=== PATIENT | male | born 1990 | race Asian ===

== ENCOUNTER 2018-01-13 03:02 | Emergency (ER) | payer OTHER ==
[~2018-01-13] VITALS: Ht 193 cm; Wt 102.4 kg
[2018-01-13 03:07] VITALS: TEMP 36.7; Ht 193 cm; Wt 102.4 kg
[2018-01-13] MEDS ORDERED: GI COCKTAIL PO STA (03:19)
[2018-01-13] MEDS ORDERED: SODIUM CHLORIDE 0.9% 1000ML 1,000 ML IV STA (03:19)
--- NOTE | 2018-01-13 03:24 | EMERGENCY ROOM VISIT NOTE ---
History Report prepared by Saloni: Thomas Sethi Under the Supervision of: Dr. Brooks Montague M.D. First contact with patient: 03:13 Chief Complaint: ABDOMINAL PAIN Stated Complaint: ACUTE STOMACH ACHE History of Present Illness The patient is a 27 year old male who presents to the Emergency Room with complaints of an intermittent lower abdominal pain beginning two hours ago. He rates his symptoms an 8/10 in peak severity. The patient states he had a fever yesterday and took acetaminophen. He reports his fever resolved, and now he has his stomach pain. The patient denies nausea, vomiting, diarrhea, leg swelling, and a past medical history. He notes he has been in the [place] for a year now and is a grad student at [employer]. The patient states he is able to drive, but he took an Uber here because he cannot drive when his pain increases. He reports he researched his symptoms and believes he may have acute gastroenteritis. Source of History: patient Onset: two hours ago Position: abdomen Symptom Intensity: 8/10 Timing: intermittent Associated Symptoms: + fevers (resolved), No nausea, No vomiting, No diarrhea Note: He denies leg swelling Review of Systems See HPI for pertinent positives & negatives. A total of 10 systems reviewed and were otherwise negative. Past Medical & Surgical Medical Problems: (1) No Known Active Medical Problems Family History Patient reports no known family medical history. Social History Smoking Status: Never Smoker Occupation Status: [employer] Current/Historical Medications Scheduled Dicyclomine Hcl (Bentyl), 1 CAP PO TID Allergies Coded Allergies: No Known Allergies (Unverified , 01/13/18) Physical Exam Vital Signs Date Time Temp Pulse Resp B/P (MAP) Pulse Ox O2 Delivery O2 Flow Rate FiO2 01/13/18 05:53 59 18 115/66 100 Room Air 01/13/18 05:00 72 18 139/89 100 Room Air 01/13/18 03:07 36.7 67 18 147/78 97 Room Air Physical Exam GENERAL: Patient is well appearing and in minimal distress. EYES: No scleral icterus, unremarkable pupils. ENT: Mucous membranes moist, no nasal congestion. NECK: No masses appreciated, no meningismus, trachea is midline. RESPIRATORY: No dyspnea. Clear to auscultation and equal bilaterally. No wheeze , no rhonchi. CARDIOVASCULAR: Regular rate and rhythm. No murmurs, rubs, gallops appreciated. GASTROINTESTINAL: Abdomen soft, vague periumbilical tenderness, no peritonitis. Bowel sounds positive. No masses appreciated. BACK: No midline tenderness, no CVA tenderness EXTREMITIES: Normal motion all extremities, no cyanosis, no edema. NEUROLOGIC: Alert and oriented, no acute motor or sensory deficits, no focal weakness, cranial nerves grossly intact. SKIN: No rash, no jaundice, no diaphoresis. Medical Decision & Procedures ER Provider Diagnostic Interpretation: Stat Rad Radiology results and stated below per my review and radiologist interpretation: CT ABDOMEN & PELVIS With Contrast: Mucosal thickening involving several small bowel loops in the right abdomen. Fluid-filled loops of small bowel in left abdomen. No evidence for high-grade bowel obstruction the primary consideration is inflammatory or infectious enteritis. Normal caliber appendix noted in the right pelvis. No free fluid or pneumoperitoneum. The liver, decompressed gallbladder, pancreas, spleen, adrenal glands and kidneys are unremarkable. The bladder is decompressed without significant abnormality. Radiologist: Scott Devlin MD Laboratory Results 01/13/18 03:50 Red Blood Count 5.35, Mean Corpuscular Volume 84.7, Mean Corpuscular Hemoglobin 29.5, Mean Corpuscular Hemoglobin Concent 34.9, Mean Platelet Volume 11.9, Neutrophils (%) (Auto) 81.5, Lymphocytes (%) (Auto) 12.9, Monocytes (%) (Auto) 4.9, Eosinophils (%) (Auto) 0.4, Basophils (%) (Auto) 0.2, Neutrophils # (Auto) 10.88, Lymphocytes # (Auto) 1.73, Monocytes # (Auto) 0.66, Eosinophils # (Auto) 0.05, Basophils # (Auto) 0.03 01/13/18 03:50 Test 01/13/18 03:45 01/13/18 03:50 Urine Color DK YELLOW Urine Appearance CLEAR (CLEAR) Urine pH 5.5 (4.5-7.5) Urine Specific [place] 1.031 (1.000-1.030) Urine Protein TRACE (NEG) Urine Glucose (UA) NEG (NEG) Urine Ketones 1+ (NEG) Urine Occult Blood TRACE (NEG) Urine Nitrite NEG (NEG) Urine Bilirubin NEG (NEG) Urine Urobilinogen NEG (NEG) Urine Leukocyte Esterase NEG (NEG) Urine WBC (Auto) 1-5 /hpf (0-5) Urine RBC (Auto) 0-4 /hpf (0-4) Urine Hyaline Casts (Auto) 1-5 /lpf (0-5) Urine Epithelial Cells (Auto) 0-5 /lpf (0-5) Urine Bacteria (Auto) NEG (NEG) White Blood Count 13.37 K/uL (4.8-10.8) Red Blood Count 5.35 M/uL (4.7-6.1) Hemoglobin 15.8 g/dL (14.0-18.0) Hematocrit 45.3 % (42-52) Mean Corpuscular Volume 84.7 fL (80-100) Mean Corpuscular Hemoglobin 29.5 pg (25-34) Mean Corpuscular Hemoglobin Concent 34.9 g/dl (32-36) Platelet Count 173 K/uL (130-400) Mean Platelet Volume 11.9 fL (7.4-10.4) Neutrophils (%) (Auto) 81.5 % Lymphocytes (%) (Auto) 12.9 % Monocytes (%) (Auto) 4.9 % Eosinophils (%) (Auto) 0.4 % Basophils (%) (Auto) 0.2 % Neutrophils # (Auto) 10.88 K/uL (1.4-6.5) Lymphocytes # (Auto) 1.73 K/uL (1.2-3.4) Monocytes # (Auto) 0.66 K/uL (0.11-0.59) Eosinophils # (Auto) 0.05 K/uL (0-0.5) Basophils # (Auto) 0.03 K/uL (0-0.2) RDW Standard Deviation 37.5 fL (36.4-46.3) RDW Coefficient of Variation 12.4 % (11.5-14.5) Immature Granulocyte % (Auto) 0.1 % Immature Granulocyte # (Auto) 0.02 K/uL (0.00-0.02) Anion Gap 7.0 mmol/L (3-11) Est Creatinine Clear Calc Drug Dose 128.3 ml/min Estimated GFR () 110.0 Estimated GFR (Non- 94.9 BUN/Creatinine Ratio 12.3 (10-20) Calcium Level 9.1 mg/dl (8.5-10.1) Total Bilirubin 0.4 mg/dl (0.2-1) Direct Bilirubin < 0.1 mg/dl (0-0.2) Aspartate Amino Transf (AST/SGOT) 16 U/L (15-37) Alanine Aminotransferase (ALT/SGPT) 33 U/L (12-78) Alkaline Phosphatase 57 U/L (45-117) Total Protein 8.3 gm/dl (6.4-8.2) Albumin 4.3 gm/dl (3.4-5.0) Lipase 84 U/L (73-393) Laboratory results as reviewed by me. Medications Administered Medications (Trade) Dose Ordered Sig/Gm Route Start Time Stop Time Status Last Admin Dose Admin Sodium Chloride 1,000 ml @ 999 mls/hr Q1H1M STAT IV 01/13/18 03:19 01/13/18 04:19 DC 01/13/18 04:22 999 MLS/HR Dicyclomine HCl (Bentyl Inj) 20 mg NOW ONCE IM 01/13/18 03:30 01/13/18 03:31 DC 01/13/18 04:09 20 MG Ranitidine HCl (zANTac SYRUP) 150 mg NOW ONCE PO 01/13/18 03:30 01/13/18 03:31 DC 01/13/18 04:09 150 MG Lidocaine HCl (Viscous Lidocaine 2% Soln) 20 ml STK-MED ONCE .ROUTE 01/13/18 04:04 01/13/18 04:05 DC 01/13/18 04:08 20 ML Al Hydroxide/Mg Hydroxide (Maalox Susp) 30 ml STK-MED ONCE .ROUTE 01/13/18 04:05 01/13/18 04:06 DC 01/13/18 04:08 30 ML Medical Decision Differential: Cholecystitis, Gallbladder disfunction, Hepatic Disfunction, Gastritis/PUD, Pancreatitis, amongst other pathologies entertained. 27 yr old male arrives with periumbilical pain without other symptoms. Waxing/ waning. No nausea, vomiting, diarrhea. Reported fevers but none here. Minimal TTP. WBC mildly elevated and still complaining of pain. Reviewed pros/cons CT and wishes to have this done. Enteritis noted on CT. Repeat exam with soft non -tender abdomen. Without further symptoms I do not feel the abx nor steroids indicated. Bentyl PRN cramping. [place] diet reviewed. RTED if worsening or other concerns. Medication Reconcilliation Current Medication List: was personally reviewed by me Blood Pressure Screening Patient's blood pressure: Elevated blood pressure Blood pressure disposition: Elevated BP felt to be situational Impression Primary Impression: Enteritis Scribe Attestation The scribe's documentation has been prepared under my direction and personally reviewed by me in its entirety. I confirm that the note above accurately reflects all work, treatment, procedures, and medical decision making performed by me. Departure Information Dispostion Home / Self-Care Prescriptions Dicyclomine Hcl (BENTYL) 10 Mg Cap 1 CAP PO TID, #15 CAP 1 Refill Prov: Brooks Montague M.D. 01/13/18 Referrals No Doctor, Assigned (PCP) Patient Instructions ED Gastroenteritis Viral, My [facility] Additional Instructions You likely have a Viral Gastroenteritis. You may develop nausea, vomiting, or diarrhea. Keep well hydrated and drink lots of water. Use Acetaminophen as indicated on bottle for Fever. Return if severe pain, passing out, high fevers, blood in stool, or other concerning symptoms. Follow up with [facility] for further management.
[2018-01-13] MEDS ORDERED: DICYCLOMINE HCL 10 MG/ML 2 ML AMP IM ONE (03:30)
[2018-01-13] MEDS ORDERED: RANITIDINE HCL SYRUP 150 MG/10 ML UDC PO ONE (03:30)
[2018-01-13] MEDS ORDERED: LIDOCAINE HCL 2% VISC SOLN 20 ML UDC ONE (04:04)
[2018-01-13] MEDS ORDERED: ALUMINUM/MAGNESIUM SUSP 30 ML UDC ONE (04:05)
[2018-01-13 04:07] LABS: BASO % 0.2 %; BASO ABS # 0.03 K/uL (0-0.2); EOS % 0.4 %; EOS ABS # 0.05 K/uL (0-0.5); HEMATOCRIT 45.3 % (42-52); HEMOGLOBIN 15.8 g/dL (14.0-18.0); IG# 0.02 K/uL (0.00-0.02); LYMPH % 12.9 %; LYMPH ABS # 1.73 K/uL (1.2-3.4); MEAN CELL VOLUME 84.7 fL (80-100); MEAN CORPUSCULAR HEMOGLOBIN 29.5 pg (25-34); MEAN CORPUSCULAR HGB CONC 34.9 g/dl (32-36); MEAN PLATELET VOLUME 11.9 fL (7.4-10.4); MONO % 4.9 %; MONO ABS # 0.66 K/uL (0.11-0.59); NEUT % 81.5 %; NEUT ABS # 10.88 K/uL (1.4-6.5); PLATELET COUNT 173 K/uL (130-400); RED CELL DISTRIBUTION WIDTH CV 12.4 % (11.5-14.5); RED CELL DISTRIBUTION WIDTH SD 37.5 fL (36.4-46.3); WHITE BLOOD COUNT 13.37 K/uL (4.8-10.8)
[2018-01-13 04:27] LABS: ALBUMIN 4.3 gm/dl (3.4-5.0); ALKALINE PHOSPHATASE 57 U/L (45-117); ALT/SGPT 33 U/L (12-78); AST/SGOT 16 U/L (15-37); BLOOD UREA NITROGEN 13 mg/dl (7-18); CALCIUM 9.1 mg/dl (8.5-10.1); CARBON DIOXIDE 25 mmol/L (21-32); CREATININE 1.08 mg/dl (0.60-1.40); GLUCOSE 110 mg/dl (70-99); LIPASE 84 U/L (73-393); POTASSIUM 3.4 mmol/L (3.5-5.1); SODIUM 136 mmol/L (136-145); TOTAL PROTEIN 8.3 gm/dl (6.4-8.2)
[2018-01-13] MEDS ORDERED: OPTIRAY 320 IV PRN (04:45)
[2018-01-13] MEDS ORDERED: DICY10CA55 PO (05:32)
[2018-01-13 05:53] VITALS: BP 115/66; PULSE 59; O2SAT 100
--- NOTE | 2018-01-13 08:11 | DIAGNOSTIC IMAGING REPORT ---
ABD/PELVIS IV CONTRAST ONLY CLINICAL HISTORY: 27 years-old Male presenting with naya-umbilical pain, fevers, wbc elevation. TECHNIQUE: Multidetector CT of the abdomen and pelvis was performed after the administration of intravenous contrast. IV contrast: 91 mL of Optiray 320. A dose lowering technique was used consistent with the principles of ALARA (as low as reasonably achievable). COMPARISON: None. CT DOSE (mGy.cm): The estimated cumulative dose is 681.27 mGy.cm. FINDINGS: Wafer Line Worker topogram: Unremarkable. Lung bases: Lungs and pleural spaces clear. Normal heart size. No pericardial or pleural effusion. Liver: Normal morphology. Parenchymal calcification noted in the right hepatic lobe. This may indicate prior granulomatous infection. No liver lesion. Patent hepatic vasculature. Biliary: No intrahepatic or extrahepatic biliary ductal dilatation. Normal gallbladder. Pancreas: Normal. Spleen: Normal. Adrenal glands: Normal. Kidneys and ureters: Normal. No hydronephrosis. Bladder: Incompletely evaluated secondary to underdistention. Pelvic organs: Prostate and seminal vesicles normal. Bowel: The colon and appendix are normal. Small bowel wall thickening evident in several loops in the right mid abdomen (series 3 image [id number]). No evidence of perienteric inflammatory change. Mild amount of fluid in the small bowel within the range of normal. No bowel obstruction. The terminal ileum appears normal. Peritoneal cavity: No free fluid or intraperitoneal gas. Lymph nodes: No enlarged lymph nodes in the abdomen or pelvis. Vasculature: Aorta and IVC patent and normal in caliber. Abdominal wall: Normal. Musculoskeletal: Normal. IMPRESSION: 1. Small bowel wall thickening in loops of bowel in the right mid abdomen. This is consistent with a mild infectious or inflammatory enteritis. The terminal ileum and colon are not involved. No appendicitis. Electronically signed by: Reji Landis M.D. 01/13/2018 8:10 AM Dictated Date/Time: 01/13/2018 8:03 AM
== END 2018-01-13 06:05 | disposition home or self-care (01) ==
LOC: C.EDB 03:03 → EDBD 03:03 → C.EDA 06:05
DX: K52.9 Noninfective gastroenteritis and colitis, unspecified (principal)